=== PATIENT | female | born 1970 | race Caucasian/White ===

== ENCOUNTER 2017-10-25 04:56 | Emergency (ER) | payer OTHER ==
[2017-10-25] MEDS: ALBUTEROL 0.5% (NEB) 2.5 MG/0.5 ML AMP INH (06:37)
[2017-10-25] MEDS: IPRATROPIUM (NEB) 0.5 MG/2.5 ML AMP INH (06:37)
[2017-10-25] MEDS: predniSONE 20 MG TAB PO (06:56)
[2017-10-25] MEDS: ONDANSETRON (ODT) 4 MG TAB ODT (06:56)
== END 2017-10-25 07:58 | disposition home or self-care (01) ==
LOC: FTE 04:56
DX: J45.901 Unspecified asthma with (acute) exacerbation (principal); I10 Essential (primary) hypertension; E11.9 Type 2 diabetes mellitus without complications; R11.0 Nausea; Z76.0 Encounter for issue of repeat prescription
CPT/HCPCS: 71045; 94644; 99284-25

== ENCOUNTER 2019-03-19 19:08 | Emergency (ER) | payer OTHER ==
[2019-03-19] MEDS: DIPHENHYDRAMINE 25 MG CAP PO (21:18)
[2019-03-19] MEDS: predniSONE 20 MG TAB PO (21:18)
[2019-03-19] MEDS: FAMOTIDINE 20 MG TAB PO (21:18)
== END 2019-03-19 21:49 | disposition home or self-care (01) ==
LOC: FTE 19:08
DX: R21 Rash and other nonspecific skin eruption (principal); J45.909 Unspecified asthma, uncomplicated
CPT/HCPCS: 93971; 99284-25